=== PATIENT | male | born 2000 | race Caucasian/White ===

== ENCOUNTER 2023-01-24 14:28 | Emergency (ER) | payer OTHER ==
[~2023-01-24] VITALS: Ht 177.8 cm; Wt 89.8 kg
[2023-01-24] MEDS ORDERED: MORPHINE SULFATE INJ 4 MG/ML DISP.SYRIN ONE (14:57)
[2023-01-24] MEDS: MORPHINE SULFATE INJ 2 MG/ML DISP.SYRIN IV ONE (15:02)
[2023-01-24] MEDS ORDERED: HYDR-3980 PO ×5 (17:20→19:27)
[2023-01-24] MEDS ORDERED: IBUP-1957 PO ×2 (17:20→19:27)
[2023-01-24] MEDS ORDERED: HYDROCODONE/APAP 5/325MG TABLET ONE (17:32)
[2023-01-24] MEDS: HYDROCODONE/APAP 10/325MG TABLET PO ONE (17:37)
[2023-01-24] MEDS: HYDROCODONE/APAP 5/325MG TABLET PO ONE (17:38)
[2023-01-24 19:19] VITALS: BP 133/85; TEMP 98.2; O2SAT 98
[2023-01-24] MEDS ORDERED: TRAM50TA2 PO (19:37)
== END 2023-01-24 19:19 | disposition home or self-care (01) ==
LOC: ER 14:31
DX: S82.51XA Displaced fracture of medial malleolus of right tibia, initial encounter for closed fracture (principal); W13.8XXA Fall from, out of or through other building or structure, initial encounter; Y93.31 Activity, mountain climbing, rock climbing and wall climbing; Y92.214 College as the place of occurrence of the external cause; Y99.0 Civilian activity done for income or pay
CPT/HCPCS: 29515; 73590; 73610; 73630; 96374; 99284; J2270